=== PATIENT | male | born 1980 | race Caucasian/White ===

== ENCOUNTER 2019-08-25 11:39 | Outpatient (CLI) | payer OTHER, SELFPAY ==
[2019-08-25 12:03] LABS: HCT 40.8 % (40.0-50.0); HGB 14.2 g/dL (13.5-17.5); Mean Corp. HGB Concentration 34.8 g/dL (32.0-36.0); Mean Corpuscular Hemoglobin 30.9 pg (27.0-33.0); Mean Corpuscular Volume 88.7 fL (80-95); Mean Platelet Volume 9.2 fL (8.0-11.0); Platelet Count 222 x1000/uL (130-400); RBC Distribution Width 12.1 % (11.8-14.1); White Blood Cell Count 4.72 k/cumm (4.4-10.8)
[2019-08-25 12:48] LABS: ALT 66 U/L (16-63); AST 25 U/L (15-37); Albumin 4.1 g/dL (3.4-5.0); Alkaline Phosphatase 68 U/L (46-116); Anion Gap 10.4 mmol/L (3-11); BUN 14 mg/dL (7-18); Bilirubin, Total 0.5 mg/dL (0.2-1.0); CO2 28.6 mmol/L (21.0-32.0); CREATININE 0.99 mg/dL (0.70-1.30); Calcium 9.2 mg/dL (8.5-10.1); Chloride 104 mmol/L (98-107); Glucose 100 mg/dL (74-106); Potassium 3.6 mmol/L (3.5-5.1); Sodium 143 mmol/L (136-145); TSH (W/Ref FT4) 1.82 uIU/mL (0.36-3.74); Total Protein 7.8 g/dL (6.4-8.2); Troponin I < 0.05 ng/Ml (<0.06)
[2019-08-25 13:07] LABS: D-Dimer 205 ng/mlFEU (<500)
[2019-08-27 09:17] LABS: Calculated LDL 160 mg/dL (<100); Cholesterol 265 mg/dL (<200); HDL Cholesterol 84 mg/dL (40-60); Triglyceride 105 mg/dL (<150)
== END 2019-08-25 11:59 ==
PROVIDERS: PCP Internal Medicine; Visit Provider Family Medicine
DX: R07.89 Other chest pain (principal); R00.2 Palpitations; R06.02 Shortness of breath; Z00.00 Encounter for general adult medical examination without abnormal findings
CPT/HCPCS: 36415; 80053; 80061; 85027; 84443; 84484; 85379

== ENCOUNTER 2019-09-01 02:05 | Outpatient (CLI) | payer OTHER, SELFPAY ==
--- NOTE | 2019-10-06 09:03 | W.CARDEVENT ---
Date of service: 10/06/19 Time of Service: 09:04 Cardiac Event Recorder Cardiac Event Note: This was a 30-day event monitor ordered for indications of chest pain and palpitations. The active monitoring period lasted 8 days and 18 hours. The rhythm throughout was sinus. No significant dysrhythmias were recorded
== END 2019-09-01 02:25 ==
PROVIDERS: PCP Family Medicine; Visit Provider Family Medicine
DX: R07.9 Chest pain, unspecified (principal); R00.2 Palpitations
CPT/HCPCS: 93270

== ENCOUNTER 2022-08-03 16:07 | Outpatient (REF) | payer BC, SELFPAY ==
[2022-08-03 18:40] LABS: ALT 63 U/L (16-63); AST 36 U/L (15-37); Albumin 4.2 g/dL (3.4-5.0); Alkaline Phosphatase 81 U/L (46-116); Anion Gap 9.4 mmol/L (3-11); BUN 15 mg/dL (7-18); Bilirubin, Total 0.3 mg/dL (0.2-1.0); CO2 26.6 mmol/L (21.0-32.0); CREATININE 0.9 mg/dL (0.70-1.30); Calcium 9.6 mg/dL (8.5-10.1); Calculated LDL 179 mg/dL (<100); Chloride 102 mmol/L (98-107); Cholesterol 286 mg/dL (<200); Estimated GFR 110.73 (mL/min/1.73m2); Glucose 94 mg/dL (74-106); HDL Cholesterol 76 mg/dL (40-60); Potassium 3.8 mmol/L (3.5-5.1); Sodium 138 mmol/L (136-145); Total Protein 7.9 g/dL (6.4-8.2); Triglyceride 156 mg/dL (<150)
== END 2022-08-03 16:08 | disposition home or self-care (01) ==
LOC: NCHCN 16:07
PROVIDERS: PCP Family Medicine; Visit Provider Nurse Practitioner Family
DX: Z00.00 Encounter for general adult medical examination without abnormal findings (principal); E78.5 Hyperlipidemia, unspecified
CPT/HCPCS: 80053; 80061

== ENCOUNTER 2023-08-06 17:21 | Outpatient (REF) | payer BC, SELFPAY ==
[2023-08-06 20:07] LABS: Anion Gap 10.3 mmol/L (3-11); BUN 13 mg/dL (7-18); CO2 29.7 mmol/L (21.0-32.0); CREATININE 0.9 mg/dL (0.70-1.30); Calcium 9.4 mg/dL (8.5-10.1); Calculated LDL 169 mg/dL (<100); Chloride 102 mmol/L (98-107); Cholesterol 269 mg/dL (<200); Estimated GFR 110.04 (mL/min/1.73m2); Glucose 105 mg/dL (74-106); HDL Cholesterol 83 mg/dL (40-60); Potassium 3.5 mmol/L (3.5-5.1); Sodium 142 mmol/L (136-145); Triglyceride 87 mg/dL (<150)
== END 2023-08-06 17:22 | disposition home or self-care (01) ==
LOC: NCHCN 17:21
PROVIDERS: PCP Family Medicine; Visit Provider Nurse Practitioner Family
DX: Z00.00 Encounter for general adult medical examination without abnormal findings (principal); E78.5 Hyperlipidemia, unspecified
CPT/HCPCS: 80048; 80061

== ENCOUNTER 2024-08-25 16:19 | Outpatient (CLI) | payer BC, SELFPAY ==
--- NOTE | 2024-08-25 15:30 | DI.RAD_ITS ---
Exam(s) XR SHOULDER RT COMPLETE 2+V EXAM: XR SHOULDER RT COMPLETE 2+V CLINICAL HISTORY: Shoulder pain, M25.519, evaluate pathology. TECHNIQUE: 2D digital imaging was performed. COMPARISON: No exams were available for comparison FINDINGS: 3 views No evidence of fracture or dislocation. Although there is no diminution of the subacromial space, th ere is a semi lunar calcific density in the soft tissues adjacent to the greater tuberosity this sheyla uring 10 x 4 mm consistent with calcific rotator cuff tendinitis. AC joint appears unremarkable. IMPRESSION: Findings are consistent with calcific rotator cuff tendinitis, as described above. DATA REPOSITORY: RADIATION DOSE DELIVERED:
--- NOTE | 2024-08-25 16:21 | DI.VRAD_ITS ---
PROCEDURE INFORMATION: Exam: XR Right Shoulder Exam date and time: 08/25/2024 3:56 PM Age: 43 years old Clinical indication: Other: Right shoulder pain, eval pathology TECHNIQUE: Imaging protocol: Radiologic exam of the right shoulder. Views: 2 or more views. COMPARISON: No relevant prior studies available. FINDINGS: Bones/joints: Ossification associated with distal rotator cuff. No fracture. No dislocation. Soft tissues: Normal. Other findings: Mineralization is normal. IMPRESSION: Ossification associated with distal rotator cuff. Findings are consistent with calcific tendinitis. Dictated and Authenticated by: Hayden Neff MD. Orderin Wan Sutton MD
== END 2024-08-25 16:39 ==
LOC: DI 16:20
PROVIDERS: PCP Family Medicine; Visit Provider Nurse Practitioner Family
DX: M75.31 Calcific tendinitis of right shoulder (principal)
CPT/HCPCS: 73030

== ENCOUNTER 2025-02-20 17:08 | Outpatient (REF) | payer BC, SELFPAY | END 2025-02-20 17:09 | disposition home or self-care (01) | LOC: NCHCN 17:08 | PROVIDERS: PCP Family Medicine; Visit Provider Student in an Organized Health Care Education/Training Program | DX: N50.89 Other specified disorders of the male genital organs (principal) | CPT/HCPCS: 87086 ==